=== PATIENT | male | born 1955 | race Caucasian/White ===

== ENCOUNTER → 2020-10-18 | Outpatient (CLI) | payer MEDICARE, MEDICAID ==
[~2020-10-18] MED LIST: OMNICEF 300 MG300 MG PO
== END ==
LOC: HEART 5 10:21
DX: C34.11 Malignant neoplasm of upper lobe, right bronchus or lung (principal); R06.02 Shortness of breath
CPT/HCPCS: 94060; 94729

== ENCOUNTER 2020-11-17 14:56 | Emergency (ER) | payer MEDICARE, MEDICAID ==
[2020-11-17 16:18] LABS: RED BLOOD COUNT 3.79 M/UL (4.20-5.50); WHITE BLOOD COUNT 16.7 K/UL (4.5-11.0)
[2020-11-17 16:35] LABS: BUN/CREATININE RATIO 13 (0-10)
[2020-11-17] MEDS ORDERED: OMNICEF 300 MG300 MG PO (19:27)
== END 2020-11-17 21:11 | disposition home or self-care (01) ==
LOC: ER1 14:56
PROVIDERS: Physician Assistant Medical
DX: J44.9 Chronic obstructive pulmonary disease, unspecified (principal); C34.91 Malignant neoplasm of unspecified part of right bronchus or lung; D72.829 Elevated white blood cell count, unspecified; R53.1 Weakness; I48.91 Unspecified atrial fibrillation; E11.9 Type 2 diabetes mellitus without complications; Z79.4 Long term (current) use of insulin; Z79.01 Long term (current) use of anticoagulants; Z79.899 Other long term (current) drug therapy
CPT/HCPCS: 36600; 71045; 72100; 80053; 81001; 82550; 82553; 82803; 83605; 83874; 84484; 85025; 85610; 87040; 93005; 96374; 99285; J0696; J7030